=== PATIENT | male | born 1940 | race African-American/Black ===

== ENCOUNTER 2017-01-07 11:26 | Inpatient (IN) ==
--- NOTE | 2017-01-07 12:09 | Nephrology History & Physical ---
History of Present Illness Chief complaint: U History of present illness: Mr. lucio is a 76 year old male with known crf. Creat was 4.7 in September and now is 18. He's had considerable edema and is less edematous now. He is uremic with anorexia and nausea. He denies any voiding difficulty. He has longstanding DM and hypertension. . Review of Systems Constitutional: anorexia, lethargy Cardiovascular: dyspnea on exertion, edema Respiratory: snoring Gastrointestinal: as per HPI Genitourinary: as per HPI Medical,Surgical,& Family Hx - Medical History Renal: History of: Renal Failure Hematology: History of: Anemia - Social History Smoking Status: Never smoker Frequency of Alcohol Use: None Type of Drug Use: None Exam - Nephrology - General Appearance General appearance: obese EENT: ATNC Neck: no JVD, no thyromegaly, no carotid bruit, supple Respiratory: clear Cardiology: no murmurs, regular rate Gastrointestinal: normoactive bowel sounds Integumentary: no rash, warm and dry Neurologic: no focal deficit, no asterixis, alert and oriented x3, reflexes 2+ and symmetric, gait normal, strength 5/5 Musculoskeletal: no deformities, no erythema, no cyanosis, no clubbing Psychiatric: mood/affect appropriate (obese. generally weak), cooperative Assessment and Plan (1) ESRD (end stage renal disease) Status: Acute Assessment and plan: Place dialysis cath and begin dialysis unless there is gross urinary obstruction by ultrasound (2) Anemia Status: Acute (3) Diabetes 1.5, managed as type 2 Status: Acute
[2017-01-07] MEDS ORDERED: traMADol 50 MG TABLET PO PRN (13:42)
[2017-01-07] MEDS ORDERED: ONDANSETRON 4 MG TABLET PO PRN (13:42)
[2017-01-07] MEDS ORDERED: ACETAMINOPHEN 325 MG TABLET PO PRN (13:42)
[2017-01-07] MEDS ORDERED: DEXTROSE 50% 25 GM/50 ML VIAL IV PRN (13:42)
[2017-01-07] MEDS ORDERED: BISACODYL 5 MG TABLET PO PRN (13:42)
[2017-01-07] MEDS ORDERED: GLUCAGON 1 MG VIAL IM PRN (13:42)
[2017-01-07 15:05] LABS: Basophils % 0.4 % (0.0-0.8); Eosinophils # 0.2 10*3/uL (0.0-0.87); Eosinophils % 4.6 % (0.00-10.9); Hematocrit 25.2 VOL% (42.0-52.0); Immature Granulocytes % 0.4 %; Immature Granulocytes Absolute 0.02 #; Mean Corpuscular HGB Conc 31.7 GM/DL (32-36); Mean Corpuscular Hemoglobin 25 PG (27-34); Mean Platelet Volume 10.2 FL (9.6-12.0); Monocytes # 0.8 10*3/uL (0.11-0.8); Monocytes % 15.5 % (1.7-12.7); Neutrophils % 60.1 % (38.7-73.9); Platelet Count 144 T/CUMM (130-400); Red Blood Count 3.23 MC/CUMM (3.8-5.5); Red Cell Distribution Width 14.6 % (9.3-17.3)
--- NOTE | 2017-01-07 15:13 | Event Note ---
Tunneled dialysis catheter requested. Procedure and risks were outlined in detail with the patient including infection, bleeding, damage great vessels, pneumothorax, etc. He understands these risks and wishes to proceed
[2017-01-07 15:58] LABS: % Iron Saturation 32.4 % (18-50); Alanine Aminotransferase 84 U/L (16-61); Albumin 2.6 G/DL (3.4-5.0); Alkaline Phosphatase 85 U/L (45-117); Aspartate Amino Transferase 60 U/L (0-37); Bilirubin,Total < 0.39 MG/DL (0.2-1.0); Blood Urea Nitrogen 127 MG/DL (7-18); Calcium 6.4 MG/DL (8.5-10.1); Glucose 104 MG/DL (74-106); Iron 68 UG/DL (65-175); Iron Binding Capacity 210 UG/DL (250-450); Osmolality,Calculated 330.6 MOS/KG (273-304); Potassium 4.5 MMOL/L (3.5-5.1); Sodium 146 MMOL/L (136-145); Total Protein 5.5 G/DL (6.4-8.3)
--- NOTE | 2017-01-07 16:01 | Ultrasound Report ---
Renal ultrasound. Indication: Renal outlet obstruction. The kidneys are normal in size. The right kidney measures 9.8 x 6.1 x 5.7 cm and the left measures 9.6 x 4.6 x 5.0. There is increased parenchymal echogenicity, and there is prominence of the medullary pyramids. Is a small cyst at the superior pole the right kidney. No hydronephrosis. Arterial flow is documented bilaterally. The residual bladder urine volume following voiding, 4.4 x 7.9 x 4.6 cm, 85.7 mL. Impression: Prominent increase in the parenchymal echogenicity the kidneys which can indicate medical renal disease. Residual volume of the urinary bladder, 85.7 mL. PROCEDURE INTERPRETED AT [facility] DEPARTMENT OF RADIOLOGY Final Report Signed by: Dr. Sunshine Feldman
--- NOTE | 2017-01-07 16:04 | XRay Report ---
History: Shortness of breath Date: 01/07/2017 at 3:52 PM Study: Left lateral decubitus view of the chest Comparison exam: PA chest x-ray 01/07/2017 at 3:49 PM There is some pleural reaction along the lateral aspect of the left hemithorax, though this is similar to the PA study. No significant mobile pleural effusion is identified on the left. The exam is otherwise unchanged. Impression: No significant free flowing left pleural effusion is seen PROCEDURE INTERPRETED AT [facility] DEPARTMENT OF RADIOLOGY Final Report Signed by: Dr. Ramona Cifuentes
[2017-01-07] MEDS: ENOXAPARIN 30 MG/0.3 ML SYRINGE SUBCUT SCH (16:07)
--- NOTE | 2017-01-07 16:07 | XRay Report ---
PA and lateral chest. Indication: Shortness of breath. No prior study. The heart is enlarged. The pulmonary vasculature is normal. There are areas of atelectasis present at each lung base. Suspected minimal left pleural effusion. Impression: Cardiomegaly and basilar atelectasis. Minimal left pleural effusion. PROCEDURE INTERPRETED AT [facility] DEPARTMENT OF RADIOLOGY Final Report Signed by: Dr. Sunshine Feldman
[2017-01-07] MEDS: INSULIN REGULAR 100 UNIT/ML SUBCUT SCH (16:08)
--- NOTE | 2017-01-07 16:23 | EKG Report ---
Stationary ECG Study [facility] Test Date: 01/07/2017 2:52:34 PM Pat Name: RODO TERRY Department: Room: 529 Gender: M Electrical Design Technician: : 1940 Requested by: Patrice Henson Order Number: [id number] Reading MD: ALFONZO DEGROOT Intervals [place] Rate: 76 P: 38 SD: 153 QRS: -35 QRSD: 94 T: 73 QT: 422 QTc: 452 Interpretive Statements SINUS RHYTHM WITH OCCASIONAL VENTRICULAR PREMATURE COMPLEXES LOW QRS VOLTAGE IN PRECORDIAL LEADS POSSIBLE ANTERIOR MYOCARDIAL INFARCTION, PROBABLY OLD INFERIOR MYOCARDIAL INFARCTION, PROBABLY OLD Electronically Signed On 01-09-17 12:40:48 TRIALS MANAGER by ALFONZO DEGROOT [email or web address]
[2017-01-07] MEDS: CALCIUM CARBONATE CHEW 500 MG TABLET PO SCH ×2 (16:34→20:47)
[2017-01-07] MEDS: FUROSEMIDE 80 MG TABLET PO SCH (16:34)
[2017-01-07 16:36] LABS: Hepatitis A Ab IgM Quant 0.16 Index; Hepatitis A Ab IgM Result Negative (Negative); Hepatitis B Core IgM Quant 0.17 Index; Hepatitis B Core IgM Result Negative (Negative); Hepatitis B Surface Ag Quant < 0.10 Index; Hepatitis B Surface Ag Result Negative (Negative); Hepatitis C Virus Ab Quant 0.06 Index; Hepatitis C Virus Ab Result Negative (Negative)
[2017-01-07] MEDS ORDERED: EPOETIN ALFA 2,000 UNIT/1 ML VIAL IV PRN (17:14)
--- NOTE | 2017-01-07 17:14 | Nephrology Progress Note ---
Nephrology - PN: Subj Interval history: Mr. Aviles seen in follow-up of his chronic kidney disease. His ultrasound demonstrates no evidence of obstruction and he does empty his bladder well. Dr. Ordoñez plans dialysis catheter placement for tomorrow and the patient understand that procedure. We plan to begin dialysis tomorrow after dialysis catheter placement. His height [place] L see me and hyperphosphatemia is being addressed with Tums. His PTH reflects secondary hyperparathyroidism. Hepatitis profile is negative. We will began erythropoietin with each dialysis. His iron saturation is good and he has adequate iron stores. He has no complaints for now other than being hungry and he will have supper sign Exam (PN)-Nephrology - Vital Signs Vital signs: Period Temp Pulse Resp BP Sys/Warner Pulse Ox Last 24 Hr 97.4 F 73 18 153/68 94 - Lab 01/07/17 14:52 01/07/17 14:52 Most recent lab results Calcium 6.4 MG/DL (8.5-10.1) L 01/07/17 14:52 Assessment and Plan (1) ESRD (end stage renal disease) Status: Acute Assessment and plan: Place dialysis cath and begin dialysis unless there is gross urinary obstruction by ultrasound Current Visit: Yes (2) Anemia Status: Acute Current Visit: Yes (3) Diabetes 1.5, managed as type 2 Status: Acute Current Visit: Yes
[2017-01-07] MEDS: CARVEDILOL 25 MG TABLET PO SCH (20:48)
[2017-01-07] MEDS ORDERED: ATORVASTATIN 40 MG TABLET PO SCH (21:00)
[2017-01-08] MEDS ORDERED: CLINDAMYCIN INJ 900 MG in PREMIX 1 EACH IV ONE (06:00)
[2017-01-08] MEDS: SODIUM CHLORIDE 0.9% 250 ML IV SCH (08:48)
[2017-01-08] MEDS: INSULIN REGULAR 100 UNIT/ML SUBCUT SCH ×2 (09:06→16:39)
[2017-01-08] MEDS ORDERED: HEPARIN 5,000 UNIT/1 ML VIAL ONE (09:07)
[2017-01-08] MEDS ORDERED: BUPIVACAINE MPF 0.25% /EPI 30 ML VIAL ONE (09:08)
[2017-01-08] MEDS ORDERED: LIDOCAINE 1%/EPI INJ 20 ML VIAL ONE (09:08)
--- NOTE | 2017-01-08 09:58 | Operative Note ---
Date of procedure: 01/08/17 Pre-op diagnosis: chronic renal failure Post-op diagnosis: same Procedure: 19 cm tunneled hemodialysis catheter right internal jugular vein under ultrasound and fluoroscopic guidance Findings and technique: After informed consent was obtained the patient was brought the operating room and placed in spine position. After IV sedation was administered the patient's neck and chest was draped in usual sterile fashion. Local anesthesia was infiltrated and a sterile ultrasound probe placed on the right neck were the internal jugular vein was easily identified and easily accessed with single stick. The guidewire was advanced under fluoroscopy without resistance and incision made at the guidewire puncture site and a separate stab incision made beneath the right clavicle. The catheter was tunneled between the 2 incisions and an introducer sheath passed over the guidewire without resistance. The catheter was introduced and the tip positioned in the superior vena cava under fluoroscopy. Prior to inserting the catheter the guidewire was removed. The catheters were easily accessed aspirated and flushed and fluoroscopy used to check good positioning. Incision the neck was closed interrupted 3-0 nylon suture and the catheter sutured to the skin. A chest x-ray is pending. Anesthesia: MAC, local Surgeon / Physician: Jonn Ordoñez III. Estimated blood loss: minimal Specimens: none sent Condition: stable Disposition: PACU Results - Labs CBC & BMP: 01/07/17 14:52 01/07/17 14:52 Discharge Plan - Discharge Medications No Action Atorvastatin [Lipitor] 40 mg PO BEDTIME Colchicine 0.6 mg PO DAILY hydrALAZINE TAB [Apresoline Tab] 50 mg PO TID amLODIPine [Norvasc] 10 mg PO DAILY Sitagliptin Phosphate [Januvia] 50 mg PO DAILY Carvedilol [Coreg] 25 mg PO BID Finasteride 5 mg PO DAILY Calcitriol 0.25 mcg PO DAILY Aspirin [Ecotrin] 81 mg PO DAILY Furosemide 40 mg PO DAILY - Follow Up or Referral - Forms/Instructions
[2017-01-08] MEDS ORDERED: fentaNYL 100 MCG/2 ML VIAL ONE (10:14)
[2017-01-08] MEDS ORDERED: PROPOFOL 200 MG/20 ML VIAL IV ONE (10:14)
[2017-01-08] MEDS ORDERED: KETAMINE 500 MG/10 ML VIAL ONE (10:15)
[2017-01-08] MEDS ORDERED: MIDAZOLAM 2 MG/2 ML VIAL ONE (10:15)
[2017-01-08] MEDS: FUROSEMIDE 80 MG TABLET PO SCH ×3 (10:22→15:08)
[2017-01-08] MEDS: CARVEDILOL 25 MG TABLET PO SCH ×2 (10:23→21:06)
[2017-01-08] MEDS: amLODIPine 10 MG TABLET PO SCH (10:23)
[2017-01-08] MEDS: FINASTERIDE 5 MG TABLET PO SCH (10:23)
[2017-01-08] MEDS: CALCIUM CARBONATE CHEW 500 MG TABLET PO SCH ×3 (10:23→21:06)
[2017-01-08] MEDS: PANTOPRAZOLE 40 MG TABLET PO SCH (10:23)
--- NOTE | 2017-01-08 10:30 | XRay Report ---
Portable chest Date: 01/08/2017 Clinical history: Dialysis catheter placement Comparison: 01/07/2017 Technique: Portable AP sitting chest Findings: Stable cardiomegaly. Interval insertion of right IJ venous dialysis catheter with tips in SVC. No pneumothorax. Expiratory chest with persistent diffuse parenchymal findings at the lung bases. Small pleural effusions with stable mediastinum and osseous structures. Impression: Satisfactory insertion of right IJ venous dialysis catheter with no pneumothorax. Persistent atelectasis/edema at the lung bases with small pleural effusions. PROCEDURE INTERPRETED AT [facility] DEPARTMENT OF RADIOLOGY Final Report Signed by: Dr. Radha Darby
--- NOTE | 2017-01-08 12:04 | Dialysis Note ---
Dialysis Note - Dialysis Note Patient seen on hemodialysis, he is tolerating this well, we will continue his treatment unchanged.
[2017-01-08] MEDS ORDERED: HEPARIN 10,000 UNIT/10 ML VIAL IV PRN (12:37)
--- NOTE | 2017-01-08 13:30 | Anesthesia ---
Anesthesia Post OP - Post Ansesthetic Evaluation Patient seen in post op: Yes Resp: within normal limits CV: within normal limits Mental: within normal limits Temp: within normal limits [id number]: within normal limits Nausea and Vomiting: within normal limits Pain: within normal limits
[2017-01-08] MEDS: ENOXAPARIN 30 MG/0.3 ML SYRINGE SUBCUT SCH ×2 (14:31→15:08)
[2017-01-09] MEDS: SODIUM CHLORIDE 0.9% 250 ML IV SCH ×2 (00:23→14:28)
[2017-01-09] MEDS: PANTOPRAZOLE 40 MG TABLET PO SCH (08:30)
[2017-01-09] MEDS ORDERED: DIPHENOXYLATE/ATROPINE 2.5-0.025 MG TABLET PO PRN (08:49)
[2017-01-09] MEDS ORDERED: DIPHENOXYLATE/ATROPINE 2.5-0.025 MG TABLET PO ONE (08:50)
--- NOTE | 2017-01-09 08:55 | Nephrology Progress Note ---
Nephrology - PN: Subj Interval history: Mr. Branch is seen in follow-up of his new onset end-stage renal disease. He dialyzed yesterday and did well. Today he says he has diarrhea because he is nervous. He doesn't feel like more dialysis because of the diarrhea smoke and fumes global [place] and dialyze little later today. He scheduled be dialyzing at [facility] on Thursday so we will dialyze him tomorrow and plan to go [facility] on Thursday. His chest is clear heart without rub or gallop catheter is dry. We will seen on dialysis Exam (PN)-Nephrology - Vital Signs Vital signs: Period Temp Pulse Resp BP Sys/Warner Pulse Ox Last 24 Hr 97.2 F-99.1 F 68-85 18-20 111-181/62-91 92-100 - Lab 01/07/17 14:52 01/07/17 14:52 Most recent lab results Calcium 6.4 MG/DL (8.5-10.1) L 01/07/17 14:52 Assessment and Plan (1) ESRD (end stage renal disease) Status: Acute Assessment and plan: Place dialysis cath and begin dialysis unless there is gross urinary obstruction by ultrasound Current Visit: Yes (2) Anemia Status: Acute Current Visit: Yes (3) Diabetes 1.5, managed as type 2 Status: Acute Current Visit: Yes
[2017-01-09] MEDS: FINASTERIDE 5 MG TABLET PO SCH (09:11)
[2017-01-09] MEDS: CALCIUM CARBONATE CHEW 500 MG TABLET PO SCH ×3 (09:11→21:16)
[2017-01-09] MEDS: CARVEDILOL 25 MG TABLET PO SCH ×2 (09:11→21:17)
[2017-01-09] MEDS: amLODIPine 10 MG TABLET PO SCH (09:11)
[2017-01-09] MEDS: FUROSEMIDE 80 MG TABLET PO SCH ×2 (09:11→16:01)
[2017-01-09] MEDS: INSULIN REGULAR 100 UNIT/ML SUBCUT SCH ×2 (09:15→16:56)
--- NOTE | 2017-01-09 12:36 | Dialysis Note ---
Dialysis Note - Dialysis Note Mr. Aviles is seen during his hemodialysis. He is dialyzing 3 and half hours today and our plan is to dialyze for a half hours tomorrow. He'll be discharged after dialysis tomorrow we'll go to the [facility] dialysis unit. He is received Epogen while here. He'll go home taking toms.
--- NOTE | 2017-01-09 12:40 | Discharge Summary ---
Hospital Course - Hospital Course Hospital Course: Mr. Aviles is a 76-year-old man with a history of chronic renal failure diabetic nephropathy and hypertensive nephrosclerosis. He was seen in our office in September with a creatinine of 4.5 and he declined fistula creation at that time. He returned to the office on January 07 with a creatinine of 18 and a calcium of approximately 6 and phosphorus of 9. His hematocrit was 24 with adequate iron stores. He was hospitalized and Dr. Ordoñez placed a Tunnel dialysis catheter on the and he underwent his first hemodialysis on the . He dialyzed again on the and we'll dialyze on the . His hospital course was uneventful. He did receive Epogen 6,000 units with each dialysis. He is feeling much better. He will dialyze in the [place] dialysis unit and will be there at nothursday and Thursday. He will need a long-term access created but that can probably best be done by the surgeons who will manage him long-term through the [facility] system. Discharge meds will include Calcitriol 0.25mcg daily, Tums 500mg two TID with meals, Lasix 40mg daily for now, Proscar, Amlodipine, Carvedilol, Atorvastatin as before. He'll stop Januvia and Colchicine. Final diag: ESRD. Obesity. Type 2 DM. Hypertension. 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 Diagnosis - Discharge Diagnosis (1) ESRD (end stage renal disease) Status: Chronic (2) Anemia Status: Chronic (3) Diabetes 1.5, managed as type 2 Status: Chronic Specialty Discharge - Follow Up or Referrals - Speciality Discharge Instructions Nephrology Instructions: [place] dialysis unit TTS at noon Discharge Plan - Discharge Data Condition at Discharge: Stable Discharge Diet: diabetic diet Activity: resume usual activities as tolerated Hygiene: may shower, keep area(s) dry Weight Bearing at Discharge: full weight bearing Driving: no restrictions - Discharge Medications No Action Atorvastatin [Lipitor] 40 mg PO BEDTIME Colchicine 0.6 mg PO DAILY hydrALAZINE TAB [Apresoline Tab] 50 mg PO TID amLODIPine [Norvasc] 10 mg PO DAILY Sitagliptin Phosphate [Januvia] 50 mg PO DAILY Carvedilol [Coreg] 25 mg PO BID Finasteride 5 mg PO DAILY Calcitriol 0.25 mcg PO DAILY Aspirin [Ecotrin] 81 mg PO DAILY Furosemide 40 mg PO DAILY - Follow Up or Referral - Forms/Instructions Exam - Constitutional Vitals: Period Temp Pulse Resp BP Sys/Warner Pulse Ox Last 24 Hr 98.3 F-99.1 F 77-85 18-20 129-181/62-91 92-93 Discharge Results Labs on day of discharge: Labs from last 24 hours 01/09/17 01/09/17 01/08/17 12:21 07:34 19:04 POC Glucose 89 90 84 01/08/17 15:20 POC Glucose 106 DS: Provider Date of admission: 01/07/17 13:42 Primary care physician: Alize Gutierrez RN Attending physician on admission: Patrice Henson MD Consults: 01/07/17 13:42 Consult to Physician [CONS] Routine Comment: tunnelled dialysis catheter Consulting Provider: Jonn Ordoñez III. Person Notified: Ai Date Notified: 01/07/17 Time Notified: 14:34 01/07/17 14:16 Consult to Case Mgmt/Social Srvs [CONS] Routine Reason for Case Mgmt/Social Srvs: Dialysis Consult Comment: prefers [facility] dialysis unit 01/07/17 16:05 Consult to Pharmacy [CONS] Routine Reason for Pharmacy Consult: Adjust Meds Renal Funct Discharging clinician: Patrice Henson MD
[2017-01-09] MEDS: ENOXAPARIN 30 MG/0.3 ML SYRINGE SUBCUT SCH (16:01)
[2017-01-10] MEDS: SODIUM CHLORIDE 0.9% 250 ML IV SCH ×2 (01:15→14:51)
[2017-01-10 09:01] VITALS: BP 170/90
--- NOTE | 2017-01-10 09:33 | Nephrology Progress Note ---
Nephrology - PN: Subj Interval history: Patient seen on hemodialysis he is tolerating this well will continue his treatment unchanged Physical exam general the patient's in no acute distress Assessment/plan 1. End-stage renal disease-patient is seen on hemodialysis [place] tolerating this well will continue his treatment unchanged 2. Anemia-patient is on EPO 3. Hypertension this is controlled 4. Diabetes mellitus-continue his present hypoglycemic regimen Patient is to be discharged home today. Exam (PN)-Nephrology - Vital Signs Vital signs: Period Temp Pulse Resp BP Sys/Warner Pulse Ox Last 24 Hr 96.6 F-99.1 F 83-96 16-20 134-170/74-95 90-92 - Lab 01/07/17 14:52 01/07/17 14:52 Most recent lab results Calcium 6.4 MG/DL (8.5-10.1) L 01/07/17 14:52 Specialty Discharge - Follow Up or Referrals
[2017-01-10] MEDS: INSULIN REGULAR 100 UNIT/ML SUBCUT SCH (09:58)
[2017-01-10] MEDS: amLODIPine 10 MG TABLET PO SCH (14:12)
[2017-01-10] MEDS: FUROSEMIDE 80 MG TABLET PO SCH (14:13)
[2017-01-10] MEDS: CARVEDILOL 25 MG TABLET PO SCH (14:13)
[2017-01-10] MEDS: CALCIUM CARBONATE CHEW 500 MG TABLET PO SCH (14:13)
[2017-01-10] MEDS: PANTOPRAZOLE 40 MG TABLET PO SCH (14:13)
[2017-01-10] MEDS: FINASTERIDE 5 MG TABLET PO SCH (14:13)
== END 2017-01-10 14:04 | disposition home or self-care (01) | DRG 699 ==
LOC: N.5E 12:40
PROVIDERS: ADMIT Internal Medicine Nephrology; ATTEND Internal Medicine Nephrology